=== PATIENT | female | born 1985 | race Hispanic/Latino ===

== ENCOUNTER 2017-10-04 17:32 | Emergency (ER) | payer BC, SELFPAY ==
--- NOTE | 2017-10-04 19:25 | RAD ---
TWO VIEWS OF THE CHEST: 10/04/17 COMPARISON: 07/16/14 HISTORY: Cough. Flu since Friday. FINDINGS: Two views of the chest show normal sized cardiomediastinal silhouette. There is no evidence of consol idation, mass, or pleural effusion. The bones are unremarkable. IMPRESSION: No evidence of acute cardiopulmonary disease. POS: [facility]
== END 2017-10-04 19:22 | disposition home or self-care (01) ==
LOC: ERS 17:32
DX: J11.1 Influenza due to unidentified influenza virus with other respiratory manifestations (principal); K21.9 Gastro-esophageal reflux disease without esophagitis; F32.9 Major depressive disorder, single episode, unspecified; Z87.891 Personal history of nicotine dependence
CPT/HCPCS: 71046; 94640; J7620

== ENCOUNTER 2018-11-11 07:09 | Outpatient (CLI) | payer BC ==
--- NOTE | 2018-11-11 07:52 | ULT ---
RENAL ULTRASOUND: HISTORY: Renal cyst evaluation. TECHNIQUE: Real-time imaging of the right and left kidneys was performed. FINDINGS: The right kidney measures 10.5 and the left kidney 10.2 cm. There is an echogenic area within the co rtex of the left kidney, in the mid to slightly upper pole region, measuring 1 x 1.6 cm. The bladder is incompletely distended, suggesting there may be bladder wall thickening, even consider ing the degree of under-distention. A post-void image was obtained with a post-void volume of 11 mL. IMPRESSION: 1. Echogenic focus within the left kidney, which could represent angiomyolipoma, given its ultrasoun d appearance. 2. Suggestion of a somewhat thickened bladder wall. A post-void residual of 11 mL was obtained. POS: [facility]
== END 2018-11-11 07:10 | disposition home or self-care (01) ==
LOC: SCSULT 07:09
PROVIDERS: ATTEND Family Medicine
DX: N28.1 Cyst of kidney, acquired (principal); R93.422 Abnormal radiologic findings on diagnostic imaging of left kidney
CPT/HCPCS: 76770

== ENCOUNTER 2020-05-16 10:10 | Outpatient (CLI) | payer BC ==
--- NOTE | 2020-05-16 11:02 | ULT ---
Renal sonogram HISTORY: Left renal mass. COMPARISON: 02/12/2016. FINDINGS: Right kidney is 9.8 cm length with a normal appearance. Urinary bladder is unremarkable. Left kidney measures up to 9.6 cm. No hydronephrosis. Along the lateral cortex near the superior pole , a well-circumscribed slightly heterogeneous predominantly hyperechoic mass is 1.6 cm x 1.5 cm greatest diameters, unchanged from the prior exam. No new masses. 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 No new abnormalities.
== END 2020-05-16 10:11 | disposition home or self-care (01) ==
LOC: SCSULT 10:10
PROVIDERS: ATTEND Family Medicine
DX: N28.89 Other specified disorders of kidney and ureter (principal); D17.71 Benign lipomatous neoplasm of kidney
CPT/HCPCS: 76770

== ENCOUNTER 2021-01-04 12:30 | Outpatient (CLI) | payer BC | END 2021-01-04 12:31 | disposition home or self-care (01) | LOC: BICRAD 12:30 | PROVIDERS: ATTEND Family Medicine | DX: M25.512 Pain in left shoulder (principal) ==

== ENCOUNTER 2022-03-26 07:26 | Emergency (ER) | payer BC | END 2022-03-26 09:36 | disposition home or self-care (01) | LOC: ERS 07:26 | DX: J06.9 Acute upper respiratory infection, unspecified (principal); K21.9 Gastro-esophageal reflux disease without esophagitis; Z20.822 Contact with and (suspected) exposure to COVID-19 | CPT/HCPCS: 99283; U0003; U0005 ==